=== PATIENT | female | born 1960 | race Two or more races ===

== ENCOUNTER 2017-11-22 19:35 | Inpatient (IN) | payer OTHER ==
[~2017-11-22] VITALS: Ht 165.1 cm; Wt 50.8 kg
--- NOTE | 2017-11-22 23:40 | NUR ---
PT STATES HEAVY VEGINAL BLEEDING X "FEW DAYS". -DYSURIA,-N/V/D,-URINARY SYMPTOMS. PT STATES "I NEED LIBRIUM AND 2 ATIVAN PILLS AND I WILL GO". LAST ETOH TODAY 1500. PT IS AAOX4. PT ARRIVES TO ED WITH 20G IV IN PLACE MAINTENANCE COORDINATOR IN LEFT FOREARM. PT IS AAOX4. NO S/S OF ACUTE DISTRESS NOTED. RR EVEN AND UNLABORED. PT PLACED IN GOWN AND ON RADIOLOGY PHYSICIAN AND POX. PT SAFETY AND COMFORT MEASURES IN PLACE.
[2017-11-23] VITALS (12 sets, daily range): BP systolic 88–121; BP diastolic 56–87
[2017-11-23] MEDS ORDERED: LORAZEPAM 1 MG TABLET PO ONE
[2017-11-23 00:03] LABS: LYMPHOCYTES # (AUTO) 0.8 /CMM (0.8-4.8); MEAN CORPUSCULAR HGB CONC 35 g/dl (31.0-36.0); MEAN CORPUSCULAR VOLUME 102 fL (82-100); MONOCYTES # (AUTO) 0.3 /CMM (0.1-1.30); NEUTROPHILS # (AUTO) 3.6 /CMM (1.8-8.9); PLATELET COUNT (AUTO) 130 /CMM (150-450); WHITE BLOOD COUNT (AUTO) 4.8 K/uL (4.3-11.0)
[2017-11-23 00:07] LABS: CALCIUM, SERUM 8.7 mg/dL (8.5-10.1); CARBON DIOXIDE 23 mmol/L (21-32); CHLORIDE 94 mmol/L (98-107); CREATININE 0.8 mg/dL (0.6-1.3); GLUCOSE 136 mg/dL (74-106); POTASSIUM 3.7 mmol/L (3.5-5.1); SODIUM SERUM 128 mmol/L (136-145); UREA NITROGEN, BLOOD 12 mg/dL (7-18)
[2017-11-23 00:08] LABS: HEMATOCRIT 18 % (33-45); HEMOGLOBIN 6.3 g/dL (11.5-14.8); LYMPHOCYTES % (AUTO) 15.9 % (20.0-44.0); NEUTROPHILS % (AUTO) 75.2 % (43.0-81.0); RED BLOOD CELL COUNT(AUTO) 1.78 MIL/uL (4.0-5.2)
[2017-11-23 00:09] LABS: EOSINOPHILS % (AUTO) 0.9 % (0.0-6.0)
[2017-11-23 00:10] LABS: INR 1.18 (0.87-1.13)
[2017-11-23 00:13] LABS: ALANINE AMINOTRANSFERASE 29 U/L (12-78); ALBUMIN 2.7 g/dL (3.4-5.0); ALKALINE PHOSPHATASE 81 U/L (46-116); ASPARTATE AMINOTRANSFERASE 20 U/L (15-37); BILIRUBIN,TOTAL 0.5 mg/dL (0.2-1.0); TOTAL PROTEIN, SERUM 6.2 g/dL (6.4-8.2)
[2017-11-23 00:14] LABS: ALCOHOL, BLOOD < 3 mg/dL (0-0)
--- NOTE | 2017-11-23 01:18 | NUR ---
DR MORALES BEDSIDE
[2017-11-23] MEDS ORDERED: HYDROCODONE/APAP 5/325MG 1 EACH TABLET PO PRN (01:30)
[2017-11-23] MEDS ORDERED: ONDANSETRON HCL/PF 4 MG/2 ML VIAL IVP PRN (01:30)
[2017-11-23] MEDS ORDERED: Z GUARD REMEDY 2 OZ OINT TP PRN (01:30)
[2017-11-23] MEDS ORDERED: MAGNESIUM HYDROXIDE 30 ML UDC PO PRN (01:30)
[2017-11-23] MEDS ORDERED: ACETAMINOPHEN 325 MG TABLET PO PRN (01:30)
[2017-11-23] MEDS ORDERED: MAG HYDROX/AL HYDROX/SIMETH 30 ML UDC PO PRN (01:30)
--- NOTE | 2017-11-23 01:55 | NUR ---
20G L FOREARM IV DC'ED IV removed. Catheter intact and site benign. Pressure and 4x4 applied to site. No bleeding noted.
--- NOTE | 2017-11-23 01:56 | NUR ---
REPORT GIVEN TO KIANA HERRON FOR HERMES
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
--- NOTE | 2017-11-23 03:16 | NUR ---
FORENSIC ANALYST NOTES ONE UNIT PRBC TRANSFUSION STARTED. CHECKED & VERIFIED W/ 2ND RN. NO INITIAL ADVERSE REACTIONS NOTED. VSS. WILL CONTINUE TO MONITOR.
--- NOTE | 2017-11-23 06:05 | NUR ---
PRESIDENT EDUCATIONAL INSTITUTION NOTES ONE UNIT PRBC TRANSFUSION ENDED. NO ADVERSE EFFECTS NOTED & PT TOLERATED WELL. VSS.
[2017-11-23] MEDS: IV NS 0.9% 1,000 ML IV PRN (06:47)
--- NOTE | 2017-11-23 07:30 | NUR ---
PIPE LINE WALKER OPENING NOTE RECEIVED REPORT FROM PM NURSE.PATIENT AXOX4 ABLE TO AMBULATE WITH ASSIST.BED ALARM ON.INSTRUCTED TO CALL FOR HELP.ON TELE MONITOR SR84 WITH FIRST DEGREE AV BLOCK.IV ON LAC WITH NS @75CC/HR.NO INFILTRATION NOTED.BED IS LOCKED AND IN LOW POSITION.CALL LIGHT IN REACH.SRX3.WILL CONTINUE TO MONITOR.
[2017-11-23] MEDS: THIAMINE HCL 100 MG TABLET PO SCH (08:22)
[2017-11-23] MEDS: FOLIC ACID 1 MG TABLET PO SCH (08:22)
[2017-11-23 10:17] LABS: HEMATOCRIT 22 % (33-45); HEMOGLOBIN 7.8 g/dL (11.5-14.8); LYMPHOCYTES # (AUTO) 0.6 /CMM (0.8-4.8); MEAN CORPUSCULAR HGB CONC 36 g/dl (31.0-36.0); MEAN CORPUSCULAR VOLUME 98 fL (82-100); MONOCYTES # (AUTO) 0.2 /CMM (0.1-1.30); NEUTROPHILS # (AUTO) 2.5 /CMM (1.8-8.9); PLATELET COUNT (AUTO) 118 /CMM (150-450); RDW COEFFICIENT OF VARIATION 14.5 (11.5-15.0); RED BLOOD CELL COUNT(AUTO) 2.24 MIL/uL (4.0-5.2); WHITE BLOOD COUNT (AUTO) 3.4 K/uL (4.3-11.0)
[2017-11-23 10:23] LABS: LYMPHOCYTES % (AUTO) 17.6 % (20.0-44.0); MONOCYTES % (AUTO) 7.2 % (2.0-12.0); NEUTROPHILS % (AUTO) 73.7 % (43.0-81.0)
[2017-11-23 10:24] LABS: BASOPHILS % (AUTO) 0.5 % (0.0-2.0)
[2017-11-23] MEDS: CHLORDIAZEPOXIDE HCL 25 MG CAPSULE PO SCH ×2 (14:07→17:31)
--- NOTE | 2017-11-23 15:00 | NUR ---
LIVESTOCK BROKER NOTS SEEN BY .UPDATED ABOUT PATIENT CONDITION.GOT NEW ORDERS
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
--- NOTE | 2017-11-23 19:21 | NUR ---
INSIDE SALES ADMINISTRATOR CLOSING NOTE .PATIENT AXOX4 ABLE TO AMBULATE WITH ASSIST.BED ALARM ON.INSTRUCTED TO CALL FOR HELP.ON TELE MONITOR SR82 WITH FIRST DEGREE AV BLOCK.IV PULLED OUT.PATIENT TOLD PULLED OUT ACCIDENTLY.NOT ON PURPOSE.ATTEMPTED.PATENT WANT TO INSERT LATER.ENDORSED TO PM SHIFT FOR F/U..NO INFILTRATION NOTED.BED IS LOCKED AND IN LOW POSITION.CALL LIGHT IN REACH.SRX3.ENDORSED PM NURSE FOR HERMES.
[2017-11-24] VITALS: BP 115/75
--- NOTE | 2017-11-24 00:03 | NUR ---
RN NOTES PATIENT PULLED OUT IV LINE ON LEFT HAND AND ATTEMPTED TO GET UP. SHE VERBALIZED SHE WANTS TO GET SOME BEER. REMINDED PATIENT SHE IS IN A HOSPITAL AND SHE CANNOT DRINK BEER. REINSERTED PERIPHERAL LINE ON LEFT FOREARM 22G. WITH GOOD BLOOD RETURN. FLUSHES EASY. NO SIGNS OF INFLITRATION OR PHLEBITIS.
[2017-11-24] MEDS: IV NS 0.9% 1,000 ML IV PRN (02:11)
[2017-11-24 04:00] VITALS: BP 109/72
[2017-11-24 06:26] LABS: BASOPHILS % (AUTO) 1.1 % (0.0-2.0); EOSINOPHILS % (AUTO) 1.3 % (0.0-6.0); HEMATOCRIT 22 % (33-45); HEMOGLOBIN 7.7 g/dL (11.5-14.8); LYMPHOCYTES % (AUTO) 24.4 % (20.0-44.0); MEAN CORPUSCULAR HGB CONC 36 g/dl (31.0-36.0); MEAN CORPUSCULAR VOLUME 99 fL (82-100); MONOCYTES # (AUTO) 0.4 /CMM (0.1-1.30); MONOCYTES % (AUTO) 9.9 % (2.0-12.0); NEUTROPHILS # (AUTO) 2.6 /CMM (1.8-8.9); NEUTROPHILS % (AUTO) 63.3 % (43.0-81.0); PLATELET COUNT (AUTO) 136 /CMM (150-450); RED BLOOD CELL COUNT(AUTO) 2.19 MIL/uL (4.0-5.2); WHITE BLOOD COUNT (AUTO) 4.1 K/uL (4.3-11.0)
[2017-11-24 06:41] LABS: CALCIUM, SERUM 7.9 mg/dL (8.5-10.1); CREATININE 0.7 mg/dL (0.6-1.3); PHOSPHORUS 3.1 mg/dL (2.5-4.9); POTASSIUM 3.7 mmol/L (3.5-5.1)
[2017-11-24 06:47] LABS: MAGNESIUM 0.9 mg/dL (1.8-2.4)
--- NOTE | 2017-11-24 07:05 | NUR ---
RN NOTES RECEIVED CALL FROM LAB ([facility]) CRITICAL RESULT MG 0.9. PAGED [facility]. ELECTRICAL CHECKOUT MECHANIC VERBALIZED SHE WILL PAGE ELIDIA MINAYA. AWAITING FOR CALL BACK. ENDORSED TO NEXT RN JEB
[2017-11-24 08:00] VITALS: BP 120/64
[2017-11-24] MEDS: THIAMINE HCL 100 MG TABLET PO SCH (08:18)
[2017-11-24] MEDS: CHLORDIAZEPOXIDE HCL 25 MG CAPSULE PO SCH ×2 (08:18→17:39)
[2017-11-24] MEDS: FOLIC ACID 1 MG TABLET PO SCH (08:18)
[2017-11-24] MEDS: Magnesium 1GM/D5W 100ML PREMIX 100 ML IV SCH ×4 (10:38→14:46)
[2017-11-24 12:00] VITALS: BP 119/67
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
[2017-11-24 16:00] VITALS: BP 121/78
--- NOTE | 2017-11-24 18:51 | NUR ---
NS/RN NOTE RECEIVED NEW ORDER FROM DR MANCERA TO DISCONTINUE LIBRIUM 25 MG BID AND START NEW ORDER OF LIBRIUM 25 MG TID. THE ORDER IS READ BACK, VERIFIED. NOTED AND CARRIED OUT. THE PATIENT IS MADE AWARE.
[2017-11-24 20:00] VITALS: BP 123/81
--- NOTE | 2017-11-24 20:00 | NUR ---
DEBBIE RN OPENING NOTE RECEIVED BEDSIDE REPORT FROM AM NURSE. PATIENT IS AXOX4 WITH EPISODES OF FORGETFULNESS, ABLE TO AMBULATE WITH ASSISTANCE AND WALKER .BED ALARM ON.INSTRUCTED TO CALL FOR HELP.ON TELE MONITOR SR WITH HR OF 94 WITH FIRST DEGREE AV BLOCK. LEFT HAND AND LEFT FOREARM IV LINES ARE INTACT AND PATIENT WITH IV FLUIDS @75ML/HR ,NO INFILTRATION NOTED.BED IS LOCKED AND IN LOW POSITION.CALL LIGHT IN REACH.SRX3.WILL CONT. TO MONITOR.
[2017-11-25] VITALS: BP 114/79
[2017-11-25 04:00] VITALS: BP 99/64
--- NOTE | 2017-11-25 06:50 | NUR ---
DEBBIE RN CLOSING NOTES PATIENT IS STABLE, AXOX4 WITH EPISODES OF FORGETFULNESS, ABLE TO AMBULATE WITH ASSISTANCE AND WALKER . NO SOB, NO COMPLAINT OF PAIN AT THIS TIME, NO S&S OB BLEEDING DURING MY SHIFT.BED ALARM ON AT ALL TIME.INSTRUCTED TO USE CALL LIGHT FOR HELP.ON TELE MONITOR SR WITH WITH FIRST DEGREE AV BLOCK. LEFT HAND AND LEFT FOREARM IV LINES ARE INTACT AND PATIENT WITH IV FLUIDS @75ML/HR ,NO INFILTRATION NOTED.BED IS LOCKED AND IN LOW POSITION.CALL LIGHT IN REACH.SRX3.WILL GIVE PATIENT CARE REPORT TO AM NURSE FOR SALES PROFESSIONAL BILINGUAL.
[2017-11-25 07:08] LABS: CALCIUM, SERUM 8.1 mg/dL (8.5-10.1); CREATININE 0.6 mg/dL (0.6-1.3); MAGNESIUM 1.4 mg/dL (1.8-2.4); POTASSIUM 3.7 mmol/L (3.5-5.1)
--- NOTE | 2017-11-25 07:19 | NUR ---
MS/RN Patient received Patient received from plant culture manager. Sleeping at this time, appears i no distress or discomfort. Call [facility] within reach, will continue to monitor and ensure safety.
[2017-11-25] MEDS ORDERED: LEVOTHYROXINE SODIUM 75 MCG TABLET PO SCH (07:30)
[2017-11-25 08:00] VITALS: BP 116/82
[2017-11-25] MEDS: THIAMINE HCL 100 MG TABLET PO SCH (08:48)
[2017-11-25] MEDS: FOLIC ACID 1 MG TABLET PO SCH (08:48)
[2017-11-25] MEDS: CHLORDIAZEPOXIDE HCL 25 MG CAPSULE PO SCH ×2 (08:52→12:25)
--- NOTE | 2017-11-25 08:57 | NUR ---
MS/RN Medications Morning medications administered as ordered, no difficulty swallwoing.
[2017-11-25] MEDS ORDERED: MULTIVITAMINS,THERAGRAN 1 UDTAB TABLET PO SCH (09:00)
--- NOTE | 2017-11-25 10:00 | NUR ---
MS/RN Labs Labs reviewed: -mag 1.4 - replaced with 4gm IVAB.
[2017-11-25] MEDS: Magnesium 1GM/D5W 100ML PREMIX 100 ML IV SCH ×4 (10:58→13:09)
[2017-11-25 12:00] VITALS: BP 98/69
--- NOTE | 2017-11-25 14:43 | NUR ---
MS/RN S/B Dr Rosa Seen by Dr Rosa - patient to be discharged to either friends house or half-way.
--- NOTE | 2017-11-25 15:32 | NUR ---
MS/clinic lead Patient discharged in stable condition to friends house. Refused to go to [facility] at last minute, stating that her friend would be open to her returning there. Heplock X2 removed along with name bands. Educated patient about the importance of cutting back and eventually stopping drinking alcohol, patient stated understanding. Patient instructed to register with a primary care doctor to enable her to received the support and help that she requires. Given the address of [facility] to attend if unable to finf PCP. All personal belongings returned to patient, provided with clean clothes, shoes and walker. Escorted to main lobby by RN and MARKETING SUPPORT SPECIALIST.
== END 2017-11-25 15:30 | disposition home or self-care (01) | DRG 532 ==
LOC: ER 19:40 → TELE1 11-23 01:43 → MEDSG1 11-25 14:43
PROVIDERS: ADMIT Nurse Practitioner Acute Care; ATTEND Internal Medicine
PROC: 30233N1 Transfusion of Nonautologous Red Blood Cells into Peripheral Vein, Percutaneous Approach (ICD-10-PCS; principal; 2017-11-23)
DX: S31.41XA Laceration without foreign body of vagina and vulva, initial encounter (principal); D62 Acute posthemorrhagic anemia; T74.21XA Adult sexual abuse, confirmed, initial encounter; F10.239 Alcohol dependence with withdrawal, unspecified; F17.200 Nicotine dependence, unspecified, uncomplicated; Z59.0 Homelessness; Y90.0 Blood alcohol level of less than 20 mg/100 ml; Y92.9 Unspecified place or not applicable
CPT/HCPCS: 36415; 80048-TC; 80053-TC; 80061-TC; 83735-TC; 84100-TC; 84443-TC; 85025-TC; 85610-TC; 86850-TC; 86921-TC; 87081-TC; A4606; A6403; G0378; G0480; J3475; J7030; J7050; P9016-BL; Z7610